=== PATIENT | female | born 1935 | race Caucasian/White ===

== ENCOUNTER 2017-07-19 21:46 | Emergency (ER) | payer MEDICARE ==
[~2017-07-19] VITALS: Ht 162.6 cm; Wt 75.0 kg
[~2017-07-19 21:46] MED LIST: ALDACTONE50 M1 PO; ASPIRIN81 M1 PO; COZAAR100 M1 PO; DIAZEPAM5 M2 PO; LEVOTHYROXINE100 MC1 PO; LEVOXYL150 MC1 PO; LOSARTAN POTAS100 M1 PO; METFORMIN HCL500 M2 PO; METOPROLOL SUCC25 M1 PO; NORVASC5 M2 PO; OMEPRAZOLE20 M3 PO; PLAVIX75 M1 PO; TOPROL XL50 M1 PO; TYLENOL WITH C1 EACH PO; VITAMIN D35000 UNI2 PO; VOLTAREN100 G1 TOP
[2017-07-19] MEDS ORDERED: LEXAPRO10 M2 PO (22:00)
== END 2017-07-19 23:40 ==
LOC: EDMED → EDBD 21:46 → EDMED 21:46
DX: M25.552 Pain in left hip (principal); I10 Essential (primary) hypertension; E11.9 Type 2 diabetes mellitus without complications; E03.9 Hypothyroidism, unspecified; Z79.82 Long term (current) use of aspirin; Z79.01 Long term (current) use of anticoagulants